=== PATIENT | male | born 1985 | race Hispanic/Latino ===

== ENCOUNTER 2018-07-09 21:02 | Emergency (ER) | payer OTHER | END 2018-07-09 22:19 | disposition home or self-care (01) | LOC: EDH 21:02 | DX: R20.2 Paresthesia of skin (principal) | CPT/HCPCS: 99281 ==

== ENCOUNTER 2019-02-06 20:59 | Emergency (ER) | payer OTHER ==
[2019-02-06] MEDS ORDERED: LIDOCAINE HCL 1% 20 ML VIAL ONE (22:31)
[2019-02-06] MEDS ORDERED: KETOROLAC TROMETHAMINE 60 MG/2 ML VIAL ONE (22:40)
[2019-02-07 01:05] LABS: BASOPHILS % (AUTO) 0.2 % (0.0-5.0); EOSINOPHILS % (AUTO) 1.1 % (0.0-8.0); HEMATOCRIT 46.1 % (42-54); LYMPHOCYTES % (AUTO) 20.9 % (21.0-51.0); MEAN CORPUSCULAR HEMOGLOBIN 32.1 pg (27.0-33.0); MEAN CORPUSCULAR HGB CONC 34.4 g/dL (32.0-36.0); MEAN CORPUSCULAR VOLUME 93.2 fL (79-99); MONOCYTES % (AUTO) 13.5 % (3.0-13.0); NEUTROPHILS % (AUTO) 64.3 % (40.0-77.0); NUCLEATED RED BLOOD CELLS 0.1 % (0.0-0.19); PLATELET COUNT (AUTO) 224 K/uL (130-400); RED BLOOD CELL COUNT(AUTO) 4.95 MIL/uL (4.50-6.20); RED CELL DISTRIBUTION WIDTH 13.1 % (11.0-15.5)
[2019-02-07 01:13] LABS: POTASSIUM 3.9 mmol/L (3.5-5.1)
[2019-02-07 01:17] LABS: ALBUMIN 3.8 g/dL (3.5-5.0); BILIRUBIN,TOTAL 0.7 mg/dL (0.2-1.0); TOTAL PROTEIN, SERUM 7.8 g/dL (6.0-8.3)
[2019-02-07] MEDS ORDERED: IOHEXOL-350 75 ML VIAL IV ONE (01:20)
[2019-02-07] MEDS ORDERED: CLINDAMYCIN 600 MG/D5% WATER 50 ML IV ONE (02:59)
== END 2019-02-07 03:58 | disposition home or self-care (01) ==
LOC: EDH 20:59
DX: K61.2 Anorectal abscess (principal)
CPT/HCPCS: 36415; 46040; 72193; 80053; 85025; 96365; 96372; 99285; J1885; J3490; Q9967